=== PATIENT | female | born 1955 | race Hispanic/Latino ===

== ENCOUNTER 2021-08-19 12:02 | Emergency (ER) | payer BC ==
[~2021-08-19] VITALS: Ht 162.6 cm; Wt 93.0 kg
[2021-08-19] MEDS ORDERED: ONDANSETRON 4MG INJ IVP ONE (12:30)
[2021-08-19] MEDS ORDERED: MORPHINE 2 MG SYG IVP ONE (12:30)
[2021-08-19] MEDS ORDERED: 0.9%NACL 1000ML 1,000 ML IV SCH (12:30)
[2021-08-19 12:45] LABS: APPEARANCE,URINE CLEAR (CLEAR); BILIRUBIN,URINE NEGATIVE (NEGATIVE); COLOR,URINE YELLOW (YELLOW); GLUCOSE, URINE (UA) NEGATIVE (NEGATIVE); KETONES,URINE NEGATIVE (NEGATIVE); LEUKOCYTE ESTERASE ,URINE NEGATIVE (NEGATIVE); NITRATE,URINE NEGATIVE (NEGATIVE); OCCULT BLOOD,URINE NEGATIVE (NEGATIVE); PH,URINE 6.5 (5.0-8.0); PROTEIN,URINE NEGATIVE (NEGATIVE); UROBILINOGEN,URINE 0.2 mg/dL (0.2-1.0)
[2021-08-19 12:51] LABS: BASOPHILS % (AUTO) 0.4 % (0.0-5.0); EOSINOPHILS % (AUTO) 1.8 % (0.0-8.0); HEMATOCRIT 39.5 % (36-48); MEAN CORPUSCULAR HEMOGLOBIN 29.8 pg (27.0-33.0); MEAN CORPUSCULAR HGB CONC 33.9 g/dL (32.0-36.0); MONOCYTES % (AUTO) 6.1 % (3.0-13.0); NEUTROPHILS % (AUTO) 72.5 % (40.0-77.0); PLATELET COUNT (AUTO) 264 K/uL (130-400); RED BLOOD CELL COUNT(AUTO) 4.49 MIL/uL (4.00-5.50); RED CELL DISTRIBUTION WIDTH 12.5 % (11.0-15.5); WHITE BLOOD COUNT (AUTO) 9.2 K/uL (4.8-10.8)
[2021-08-19 13:07] LABS: POTASSIUM 3.9 mmol/L (3.5-5.1)
[2021-08-19 13:16] LABS: ALBUMIN 3.5 g/dL (3.5-5.0); BILIRUBIN,TOTAL 0.7 mg/dL (0.2-1.0); TOTAL PROTEIN, SERUM 8.7 g/dL (6.0-8.3)
[2021-08-19] MEDS ORDERED: METR375C2 PO (13:34)
[2021-08-19] MEDS ORDERED: DICY20TA2 PO (13:34)
[2021-08-19] MEDS ORDERED: ONDA4TAB10 PO (13:34)
[2021-08-19] MEDS ORDERED: LEVO500T90 PO (13:34)
[2021-08-19] MEDS ORDERED: METRONIDAZOLE 500 MG TABLET ONE (14:09)
[2021-08-19] MEDS ORDERED: LEVOFLOXACIN 500 MG TABLET ONE (14:10)
[2021-08-19 14:30] VITALS: BP 127/67
[2021-08-19] MEDS ORDERED: LEVOFLOXACIN 500 MG TABLET PO SCH (14:30)
[2021-08-19] MEDS ORDERED: METRONIDAZOLE 500 MG TABLET PO SCH (14:30)
== END 2021-08-19 14:49 | disposition home or self-care (01) ==
LOC: EDH 12:02
DX: K57.32 Diverticulitis of large intestine without perforation or abscess without bleeding (principal); K82.8 Other specified diseases of gallbladder; I10 Essential (primary) hypertension; E66.9 Obesity, unspecified; Z68.35 Body mass index [BMI] 35.0-35.9, adult
CPT/HCPCS: 36415; 74176; 80053; 81003; 83690; 84484; 85025; 96361 ×2; 96374; 96375; 99284; J2405; J7030